=== PATIENT | female | born 1990 | race Caucasian/White ===

== ENCOUNTER → 2016-10-06 | Outpatient (CLI) | payer OTHER ==
[2016-10-06 16:15] LABS: HEMOGLOBIN 13.9 gm/dl (12.3-15.3); RED BLOOD COUNT 4.47 M/UL (4.00-5.10); WHITE BLOOD COUNT 6.3 K/UL (4.5-11.0)
[2016-10-06 16:36] LABS: BUN/CREATININE RATIO 17 (0-10)
== END ==
LOC: LAB 15:36
PROVIDERS: Emergency Medicine
DX: I42.7 Cardiomyopathy due to drug and external agent (principal); G40.89 Other seizures; I67.89 Other cerebrovascular disease
CPT/HCPCS: 36415; 80053; 80061; 82607; 83704; 83880; 84439; 84443; 85027

== ENCOUNTER → 2016-10-28 | Outpatient (CLI) | payer OTHER | LOC: HEART 5 09-22 15:30 | DX: I42.9 Cardiomyopathy, unspecified (principal) | CPT/HCPCS: 93306 ==